=== PATIENT | male | born 1985 | race Caucasian/White ===

== ENCOUNTER 2017-12-13 18:50 | Emergency (ER) | payer SELFPAY ==
[2017-12-13 18:55] VITALS: BP 112/76; PULSE 129; RESP 15; TEMP 37.3; O2SAT 97; BMI 28.5
--- NOTE | 2017-12-13 19:07 | EKG12_ITS ---
Test Reason : SYNCOPE Blood Pressure : / mmHG Vent. Rate : 115 BPM Atrial Rate : 115 BPM P-R Int : 140 ms QRS Dur : 082 ms QT Int : 326 ms P-R-T Axes : 054 076 028 degrees QTc Int : 450 ms Sinus tachycardia Otherwise normal ECG Confirmed by ANTHONY SHRESTHA, CRICKET ([id number]), legal editor BALDO ARAYA ([id number] on 12/17/2017 2:25:09 PM Referred By: ANABELA Confirmed By:CRICKET CRUZ MD
[2017-12-13] MEDS: 0.9% Normal Saline 1,000 ML 1000 ML IV (19:20)
[2017-12-13] MEDS: Diphth,Pertuss(Acell),Tet Vac 0.5 ML Vial IM (19:21)
[2017-12-13 19:25] LABS: Absolute Neutrophil Count 8.2 X10^3/uL (2.0-7.7); Basophil# 0.01 X10^3/uL; Basophil% 0.1 % (0-1); Eosinophil# 0.17 X10^3/uL; Eosinophils% 1.4 % (0-5); Hematocrit 45.8 % (40-54); Hemoglobin 15.4 g/dl (13.0-16.5); Lymphocyte % 20.2 % (19-41); Mean Corp Hgb Conc 33.6 g/gl (32-36); Mean Corpuscular Hgb 31.2 pg (27.0-32.0); Mean Corpuscular Volume 92.7 fL (80-94); Mean Platelet Vol. 9.5 fl (6.2-12.0); Monocyte# 1.11 X10^3/uL; Monocyte% 9.3 % (0-10); Neutrophil # 8.22 X10^3/uL (2.7-7.7); Platelet Count 235 K/mm3 (150-450); RBC Distribution Width CV 13.7 % (11.6-14.6); RBC Distribution Width SD 46.2 fl (35.1-43.9); Red Blood Count 4.94 M/mm3 (4.6-6.2); White Blood Count 11.9 K/mm3 (4.4-11.0)
[2017-12-13 19:27] LABS: POSITIVE COUNT NO; POSITIVE DIFFERENTIAL NO; POSITIVE MORPHOLOGY NO
[2017-12-13 19:36] LABS: D-Dimer Quantitative (DVT/PE) < 0.27 FEU/ug/m (0.27-0.49)
--- NOTE | 2017-12-13 19:36 | ED.VISSUMM ---
- ER Visit Summary Date of Service: 12/13/17 Chief Complaint: Syncope History of Present Illness: The patient is a 32 M presenting after syncopal episode. [facility] and started to feel dizzy. He passed out. He states this happened one time in the past. He hit his head on a metal shelf. He is not sure when his last tetanus immunization was. He denies chest pain or shortness of breath. He states he is feeling improved now. He has no known medical problems. He admits to tobacco use. Denies alcohol or drug use. Physical Examination: Vitals are stable. Patient is afebrile. Alert no acute distress. HEENT exam abrasion to frontal scalp with no laceration . Neck is supple. Nontender Lungs are clear and equal bilaterally. Heart is regular and tachycardic Abdomen is soft nontender nondistended. Extremities are unremarkable. Skin is warm and dry. No focal neurologic deficit. Normal strength and sensation Remainder of exam is unremarkable. Emergency Department Course and Treatment: Patient is given IV fluids. He was given tetanus IM. EKG sinus tachycardia rate 115. He states he is feeling improved and refuses CT scan of head. Wound is cleaned. CBC, chemistries unremarkable. D-dimer is negative. Alcohol negative. Patient states he is feeling improved in the emergency department. He understands risks of leaving AGAINST MEDICAL ADVICE due to incomplete evaluation of head injury including . He is advised to return to ED if he has any worsening headache, vomiting, new complaints. Advised to follow-up with primary care physician. Disposition: Left against medical advice Impression: Syncope, closed head injury This note was generated with [employer] dictation software. It may contain incorrect words, spelling, and punctuation that were not noted in review of the chart prior to signing ED Disposition - Plan for ED Patient: Chief Complaint: Syncope Referrals: Alice Downing DO [STAFF PHYSICIAN] -
[2017-12-13 19:48] LABS: Anion Gap 11 (5-15); BUN 13 mg/dL (7-18); BUN/Creat Ratio 10.7 RATIO (10-20); Calcium,Total 8.7 mg/dL (8.5-10.1); Chloride 104 mmol/L (98-107); Creatinine, Serum 1.21 mg/dL (0.70-1.30); EST Glomerular Filtration Rate 74 mL/min (>60); Est Glom Filt Rate - Afr Amer 90 mL/min (>60); Estimated Creatinine Clearance 100.88 ml/min; Glucose 94 mg/dL (74-106); Potassium 3.9 mmol/L (3.5-5.1); Sodium Level 141 mmol/L (136-145)
[2017-12-13 20:12] VITALS: BP 128/85; PULSE 105; RESP 21; O2SAT 100
--- NOTE | 2017-12-13 20:26 | ED.RN ---
Addendum entered by Tanisha Leary 12/13/17 20:27: AWARE. Original Note: PT STATES HE FEELS BETTER AND JUST WANTS TO GO HOME.
--- NOTE | 2017-12-13 20:36 | ED.DEP ---
ED Disposition - Plan for ED Patient: Chief Complaint: Syncope Instructions: ED Fainting Unkn Cause, ED Head Injury Closed Referrals: Alice Downing DO [STAFF PHYSICIAN] -
[2017-12-13 20:37] VITALS: BP 121/80; PULSE 116; RESP 18; O2SAT 98
== END 2017-12-13 20:47 | disposition home or self-care (01) ==
LOC: ED 19:41
PROVIDERS: Emergency Provider Emergency Medicine
DX: R55 Syncope and collapse (principal); Z72.0 Tobacco use; S09.90XA Unspecified injury of head, initial encounter; W19.XXXA Unspecified fall, initial encounter; Y93.89 Activity, other specified; Y92.512 Supermarket, store or market as the place of occurrence of the external cause; Y99.9 Unspecified external cause status
CPT/HCPCS: 80048; 80320; 85025; 85379; 90715; 93005; 99285; A4216; G0480

== ENCOUNTER 2022-02-02 09:32 | Emergency (ER) | payer MEDICAID, SELFPAY ==
[2022-02-02 09:32] VITALS: BP 125/84; PULSE 114; RESP 18; TEMP 36.9; O2SAT 99; BMI 26.4
[2022-02-02 09:35] VITALS: BP 125/84; PULSE 114; RESP 18; TEMP 36.9; O2SAT 99
--- NOTE | 2022-02-02 09:45 | EDS_ITS ---
HPI History of Present Illness Chief Complaint: Wound Check Narrative Narrative: Patient who denies significant past medical history presents with abscess on his right lateral thigh that is been there for approximately a week and a half. He states it started out small but has been draining for the last week and a half. He denies any fevers or chills. No nausea or vomiting. No other symptoms. He is not diabetic and states that he has not really had abscesses in the past. PFSH PFS Medical History no medical history Home Medications acetaminophen 325 mg capsule (Tylenol) 650 mg PO Q6H PRN pain #30 caps 02/02/22 [Rx Last Taken Unknown] sulfamethoxazole 800 mg-trimethoprim 160 mg tablet (Bactrim DS) 1 tab PO BID #20 tabs 02/02/22 [Rx Last Taken Unknown] Allergy/AdvReac Type Severity Reaction Status Date / Time No Known Allergies Allergy Verified 02/02/22 09:35 Social History Smoking Status: Current every day smoker tobacco type: cigarettes ROS ROS ED ROS Narrative Constitutional: No fever, no chills. HEENT: No sore throat. No neck pain. No loss of vision. No rhinorrhea. Cardiovascular: No chest pain. No palpitations. No pedal edema. Respiratory: No cough, no shortness of breath. Abdominal: No abdominal pain. No nausea. No vomiting. Genitourinary: No dysuria. No hematuria. Musculoskeletal: No myalgias. No arthralgias. Neurologic: No headaches. No dizziness. No lightheadedness. Skin: No rash. No change in color. Positive abscess on right lateral thigh. States had been the size of a grapefruit but has gone down. Positive purulent drainage reported. Psychiatric: No depression. No anxiety. EXAM Physical Exam Narrative Exam Narrative: Afebrile. Vital signs noted. Nontoxic-appearing. HEENT: Normocephalic. Atraumatic. PERRL, EOMI. Neck soft and supple. No point tenderness or step off. Cardiovascular: Regular rate and rhythm. No murmurs, rubs, or gallops appreciated. Respiratory: No tachypnea. Lungs clear to auscultation bilaterally. Gastrointestinal: Abdomen soft, nontender, with normoactive bowel sounds. No rebound or guarding. Neurological: Awake. Alert. Nonfocal, nonlateralizing. Skin: No rash. Inspection of right thigh shows mild erythema and induration. There are 2 areas of ulceration with purulent drainage noted. Musculoskeletal: No pedal edema. Full range of motion extremities. Neurovascularly intact distally. Full range of motion of right hip and right knee including flexion and extension mechanisms. Const Vital Signs: 02/02/22 09:32 02/02/22 09:35 Temperature 98.4 F 98.4 F Temperature Source Temporal Temporal Pulse Rate 114 H 114 H Respiratory Rate 18 18 Blood Pressure 125/84 H 125/84 H Blood Pressure Mean 97 97 Pulse Ox 99 99 Oxygen Delivery Method Room Air Room Air MDM MDM MDM Narrative Medical decision making narrative: I will cleanse the area and perform I&D on any area with noted fluctuance. Patient was given his first dose of Bactrim DS here in the emergency department. The area was cleansed. There is no drainable abscess. I do feel that the geovanny ent would benefit from antibiotics. Patient was discussed with social work as the patient states he is currently homeless. I printed off prescriptions for Bactrim DS and for Tylenol for the patient. I feel he can be discharged with close follow-up for his ulcerations of his right thigh. Return instructions to the emergency department were reviewed. Disposition is discharged home in stable condition. Discharge Plan Triage Chief Complaint: Wound Check ED Provider: Frank Cui Dx/Rx/DC Orders Clinical Impression: Ulcer of thigh, Cellulitis Instructions: Wound Care, ED Abscess Antibiotic Treatment Only, ED Wound Care Prescriptions: New sulfamethoxazole-trimethoprim [Bactrim DS] 800-160 mg tablet 1 tab PO BID Qty: 20 0RF acetaminophen [Tylenol] 325 mg capsule 650 mg PO Q6H PRN (Reason: pain) Qty: 30 0RF Primary Care Provider: Care Physician,No Primary Referrals: [facility] [Non-Staff] - 3-5 Days Care Physician,No Primary [Primary Care Provider] - Activity Restrictions/Additional Instructions: Take medication as directed. Change the dressing on your right thigh once or twice daily. [facility]-up [facility] in 3 to 5 days for a wound check. Disposition Disposition: Home, Self Care
[2022-02-02] MEDS: Lidocaine 1% (20 ml mdv) 20 ML Vial 10 ML INFILT (09:49)
[2022-02-02] MEDS: Smz/Tmp Ds Tablet 1 TABLET PO (09:49)
[2022-02-02] MEDS: Acetaminophen 500 MG Tablet 1000 MG PO (11:28)
--- NOTE | 2022-02-02 12:15 | ED.RN ---
[employer] DIRECTOR FROM [facility] HERE WITH PT. PT TO FOLLOW CLOSELY TO ENSURE ANTIBIOTICS CAN BE FILLED AND DRESSING CHANGES CAN OCCUR. PT VOICES UNDERSTANDING TO DISCHARGE INSTRUCTIONS
--- NOTE | 2022-02-02 12:22 | CM.ED ---
Addendum entered by Lorena Sexton 02/02/22 12:27: TOMMY reviewed patient's chart and he has [employer] insurance which will provide for patient's medications. Lorena BENOIT Original Note: TOMMY Note Referral Source: MD SHRESTHA said that patient reports he is homeless and will need antibiotic and pain medication such as Tylenol. SW spoke to patient briefly and he advised that he has medicaid and SW advised that patient should be able to use medicaid for his Tylenol and antibiotic. TOMMY was advised that staff from the [facility] were providing ride for patient from the ED and follow up. TOMMY spoke to RN who stated that patient has a casemanager from the [facility] and did not have any further needs. Lorena BENOIT
== END 2022-02-02 12:24 | disposition home or self-care (01) ==
PROVIDERS: Emergency Provider Emergency Medicine; Visit Provider Emergency Medicine
DX: L03.119 Cellulitis of unspecified part of limb (principal); L97.109 Non-pressure chronic ulcer of unspecified thigh with unspecified severity; F17.210 Nicotine dependence, cigarettes, uncomplicated
CPT/HCPCS: 99283